=== PATIENT | female | born 1985 | race Caucasian/White ===

== ENCOUNTER 2017-04-07 18:28 | Emergency (ER) | payer MEDICAID ==
[2017-04-07 18:28] VITALS: BP 139/80
--- NOTE | 2017-04-07 18:52 | PHYS DOC ---
Past History Past Medical History: Other Past Surgical History: Other Alcohol Use: None Drug Use: None Adult General Chief Complaint Chief Complaint: [facility] HPI Patient is a 32 year old female who presents with left shoulder pain. 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 She states about a week ago she started having left shoulder pain. She points next to her medial area of her scapula on the left with is an obvious muscle spasm. She states she had an x-ray earlier but the pain has gotten worse. She's been trying [id number] medicines without any relief. She denies any numbness tingling in her arm or anything is different than normal. She states that she had a baclofen pump refilled today and the pain management doc was concerned she might have a shoulder dislocation. She denies any chest pain shortness of breath abdominal pain. Review of Systems Review of Systems Constitutional: Denies fever or chills [] Eyes: Denies change in visual acuity, redness, or eye pain [] HENT: Denies nasal congestion or sore throat [] Respiratory: Denies cough or shortness of breath [] Cardiovascular: No additional information not addressed in HPI [] GI: Denies abdominal pain, nausea, vomiting, bloody stools or diarrhea [] : Denies dysuria or hematuria [] Musculoskeletal: Positive for left shoulder pain Integument: Denies rash or skin lesions [] Neurologic: Denies headache, focal weakness or sensory changes [] Endocrine: Denies polyuria or polydipsia [] Allergies Allergies Allergies Coded Allergies Type Severity Reaction Last Updated Verified Penicillins Allergy Intermediate 10/04/15 Yes Physical Exam Physical Exam Constitutional: Well developed, well nourished, no acute distress, non-toxic appearance. [] HENT: Normocephalic, atraumatic, bilateral external ears normal, oropharynx moist, no oral exudates, nose normal. [] Eyes: PERRLA, EOMI, conjunctiva normal, no discharge. [] Neck: Normal range of motion, no tenderness, supple, no stridor. [] Cardiovascular:Heart rate regular rhythm, no murmur [] Lungs & Thorax: Bilateral breath sounds clear to auscultation [] Abdomen: Bowel sounds normal, soft, no tenderness, no masses, no pulsatile masses. [] Skin: Warm, dry, no erythema, no rash. [] Back: Muscle spasm with tenderness medial to the medial edge of the left scapula with an obvious muscle spasm on teres minor, no CVA tenderness. [] Extremities: No tenderness, no cyanosis, no clubbing, ROM intact, no edema. No pain over the left shoulder passive range of motion intact, no malalignments appreciated Neurologic: Alert and oriented X 3, normal motor function, normal sensory function, no focal deficits noted. [] Psychologic: Affect normal, judgement normal, mood normal. [] EKG EKG [] Radiology/Procedures Radiology/Procedures 2 views of the left shoulder was obtained earlier today, no fracture, pneumothorax, bony abnormalities or foreign bodies appreciated, as interpreted by me. Impressions: Left shoulder pain Course & Med Decision Making Course & Med Decision Making Pertinent Labs and Imaging studies reviewed. (See chart for details) Spoke with pharmacy at [facility] states his no drug interactions between baclofen. She will need to hold her sleeping aids while using Flexeril one Flexeril tablet was given here and a prescription for additional tablets. Patient and her dad's agreeable plan to being discharged in stable condition at this time. Return precautions given. Dragon Disclaimer Dragon Disclaimer This chart was dictated in whole or in part using Voice Recognition software in a busy, high-work load, and often noisy Emergency Department environment. It may contain unintended and wholly unrecognized errors or omissions. Departure Departure: Impression: Primary Impression: Muscle spasm Disposition: 01 HOME, SELF-CARE Condition: STABLE Referrals: JORDANA CISNEROS (PCP) Patient Instructions: Muscle Cramps, [id number] Additional Instructions: You have a muscle spasm in your back that is causing your shoulder pain. I spoke with pharmacy who states it's fine to take Flexeril with your baclofen pump and there are no drug interactions noted. Flexeril can make you sleepy, therefore do not take any sleeping aids why you are taking Flexeril. If Flexeril makes you sleepy during the day, then just take it at nighttime prior to planning on going to sleep. If your pain gets worse, you have numbness of your arm or your fingers turn blue, then return back to emergency department. Please follow-up with her primary care physician within the next week. Scripts Cyclobenzaprine Hcl (CYCLOBENZAPRINE HCL) 10 Mg Tablet 1 TAB PO Q8HRS Y for MUSCLE SPASMS, #30 TAB Prov: MICHAEL BAILEY MD 04/07/17 MICHAEL BAILEY MD Apr 07, 2017 18:52
[2017-04-07] MEDS ORDERED: CYCL-331 PO (19:44)
[2017-04-07] MEDS ORDERED: CYCLOBENZAPRINE 10 MG TABLET. PO ONE (20:00)
== END 2017-04-07 20:04 | disposition home or self-care (01) ==
LOC: ER 18:28
DX: M62.838 Other muscle spasm (principal); M25.512 Pain in left shoulder; Z88.0 Allergy status to penicillin
CPT/HCPCS: 99283; 99284

== ENCOUNTER → 2017-04-07 | Outpatient (CLI) | payer MEDICAID ==
[2015-10-05] VITALS: BP 132/92
[~2017-04-07] MED LIST: CYCL-331 PO
--- NOTE | 2017-04-08 08:06 | RAD ---
Left shoulder, 2 views, 04/07/2017: History: Shoulder pain, deformity The study is compromised by difficulties in patient positioning. There is a moderate thoracic scoliosis. There are old healed fractures of the left clavicle and several upper left ribs. There appears to be deformity of the inferior glenoid rim, possibly due to old trauma, a prominent spur or exostosis. No definite acute shoulder fracture or dislocation is identified.
== END | disposition home or self-care (01) ==
LOC: RAD 17:55
PROVIDERS: ATTEND Physical Medicine & Rehabilitation
DX: M25.512 Pain in left shoulder (principal); S42.002D Fracture of unspecified part of left clavicle, subsequent encounter for fracture with routine healing; S22.42XD Multiple fractures of ribs, left side, subsequent encounter for fracture with routine healing; M41.84 Other forms of scoliosis, thoracic region; X58.XXXD Exposure to other specified factors, subsequent encounter
CPT/HCPCS: 73030